=== PATIENT | male | born 1990 | race African-American/Black ===

== ENCOUNTER 2017-06-18 00:22 | Emergency (ER) | payer MEDICAID, OTHER ==
[~2017-06-18] VITALS: Ht 185.4 cm; Wt 126.0 kg
[2017-06-18] MEDS ORDERED: SODIUM CHLORIDE 0.9% 1000ML BAG (SEPSIS BOLUS) IV ONE (03:15)
[2017-06-18] MEDS ORDERED: VANCOMYCIN 1 G PREMIX 200 ML IV ONE (03:15)
[2017-06-18] MEDS ORDERED: KETOROLAC 30MG/ML VIAL IV STA (03:15)
[2017-06-18] MEDS ORDERED: CEFTRIAXONE 1 G PREMIX 50 ML IV ONE (03:15)
[2017-06-18 05:15] LABS: CHLORIDE 105 mEq/L (98-107)
[2017-06-18 05:18] LABS: HEMATOCRIT. 42.4 % (42.0-52.0); HEMOGLOBIN. 14.6 g/dL (14.0-18.0); PLATELET 151 x1000/uL (130-400); RED BLOOD CELL COUNT 4.56 mill/uL (4.7-6.1); RED CELL DISTRIBUTION WIDTH 13.2 % (11.6-14.6)
[2017-06-18 05:21] LABS: ETHANOL BLOOD < 10 mg/dL
[2017-06-18] MEDS ORDERED: OSELTAMIVIR 75MG CAPSULE PO NR (05:30)
[2017-06-18 05:49] LABS: CLARITY URINE CLEAR (CLEAR); COLOR URINE YELLOW (YELLOW); KETONES URINE 1+ (NEGATIVE); LEUKOCYTE ESTERASE URINE NEGATIVE (NEGATIVE); NITRITE URINE NEGATIVE (NEGATIVE); OCCULT BLOOD URINE NEGATIVE (NEGATIVE); PROTEIN URINE 1+ (NEGATIVE); SPECIFIC GRAVITY URINE 1.025 (1.005-1.030)
[2017-06-18 06:06] LABS: *AMPHETAMINES SCREEN URINE NEGATIVE (NEGATIVE); *BARBITURATES SCREEN URINE NEGATIVE (NEGATIVE); *BENZODIAZEPINES SCREEN URINE NEGATIVE (NEGATIVE); *COCAINE SCREEN URINE NEGATIVE (NEGATIVE); CANNABINOID URINE SCREEN PRESUMTIVE POSITIVE (NEGATIVE); METHADONE URINE SCREEN NEGATIVE (NEGATIVE); OPIATES URINE SCREEN NEGATIVE (NEGATIVE); PHENCYCLIDINE URINE SCREEN NEGATIVE (NEGATIVE)
[2017-06-18 06:55] VITALS: BP 118/65
[2017-06-18 08:59] LABS: PLATELET ESTIMATE NORMAL
== END 2017-06-18 07:00 | disposition home or self-care (01) ==
LOC: ER 01:00
DX: J10.1 Influenza due to other identified influenza virus with other respiratory manifestations (principal); J45.909 Unspecified asthma, uncomplicated; F41.9 Anxiety disorder, unspecified; F32.9 Major depressive disorder, single episode, unspecified
CPT/HCPCS: 36415; 71045; 80053; 80305; 81003; 83605; 83880; 85025; 87040; 87086; 87804; 96361; 96374; 99285; G0482; J1885; J7030; Z7610; J0696